=== PATIENT | female | born 1980 | race Caucasian/White ===

== ENCOUNTER 2020-10-24 23:30 | Emergency (ER) | payer SELFPAY ==
[2020-10-25] MEDS ORDERED: ONDANSETRON 4 MG/2 ML VIAL ONE (00:29)
[2020-10-25] MEDS ORDERED: MORPHINE 4 MG/ML SYR ONE (00:29)
[2020-10-25 00:47] LABS: ALT/SGPT 18 U/L (12-78); AST/SGOT 10 U/L (15-37); Albumin 3.8 g/dL (3.4-5.0); Alkaline Phosphatase 76 U/L (45-117); BUN Blood Urea Nitrogen 16 mg/dL (7-18); Bicarbonate 24 mmol/L (21-32); Bilirubin Direct < 0.1 mg/dL (0-0.2); Bilirubin Total 0.2 mg/dL (0.2-1.0); Glucose Level 96 mg/dL (74-106); Lipase 174 U/L (73-393); Potassium 3.6 mmol/L (3.5-5.1); Protein, Total 7.5 g/dL (6.4-8.2); Sodium Level 143 mmol/L (136-145)
[2020-10-25 00:48] LABS: Absolute Lymphocytes (CBC) 4.2 K/uL (0.7-4.9); Basophils % 1.4 % (0-1.3); Hematocrit 37.6 % (36.0-45.0); MPV 9.6 fL (7.6-11.3); RBC Red Blood Cell Count 4.37 M/uL (3.86-4.86)
[2020-10-25] MEDS ORDERED: MEPERIDINE HCL 50 MG/ML ONE (01:03)
--- NOTE | 2020-10-25 03:47 | EDPHYS ---
Physician Documentation [facility] Name: Estrella Cohen Age: 40 yrs Sex: Female : 1980 Arrival Date: 10/24/2020 Time: 23:31 Bed 17 Private MD: ED Physician Davin Sparks HPI: 10/25 01:01 This 40 yrs old Female presents to ER via Ambulatory with complaints of Back rn Pain, Abdominal Pain. 01:01 The patient presents with abdominal pain in the epigastric area, in the right upper rn quadrant. Onset: The symptoms/episode began/occurred today. The symptoms do not radiate. Associated signs and symptoms: Pertinent positives: nausea, Pertinent negatives: blood in stools, fever. The symptoms are described as crampy, intermittent. Modifying factors: The symptoms are alleviated by nothing, the symptoms are aggravated by food. Severity of pain: At its worst the pain was moderate in the emergency department the pain is unchanged. The patient has experienced similar episodes in the past. The patient has not recently seen a physician. Reports has gallstones, never had surgery, now having pain, intermittent, over last 3 days, worse today after eating hot pocket. No fever. No blood in stool. . REGULATORY MANAGER: 04:17 unknown jv1 Historical: - Allergies: 10/24 23:47 No Known Allergies; sg - Home Meds: 23:47 None [Active]; sg - PMHx: 23:47 Cholelithiasis; Adrenal Adenoma- Left Kidney; sg - PSHx: 23:47 Tubal ligation; sg - Immunization history:: Adult Immunizations up to date. - Social history:: Smoking status: Patient denies any tobacco usage or history of. - Family history:: not pertinent. - Hospitalizations: : No recent hospitalization is reported. ROS: 10/25 01:03 Constitutional: Negative for fever, chills, and weight loss, Eyes: Negative for injury, rn pain, redness, and discharge, Neck: Negative for injury, pain, and swelling, Cardiovascular: Negative for chest pain, palpitations, and edema, Respiratory: Negative for shortness of breath, cough, wheezing, and pleuritic chest pain, Abdomen/GI: + abd pain and nausea Back: + back pain : Negative for injury, bleeding, discharge, and swelling, MS/Extremity: Negative for injury and deformity, Skin: Negative for injury, rash, and discoloration, Neuro: Negative for headache, weakness, numbness, tingling, and seizure. Exam: 01:03 Constitutional: This is a well developed, well nourished patient who is awake, alert, rn appears uncomfortable Head/Face: Normocephalic, atraumatic. ENT: MMM Cardiovascular: Tachycardic, regular Respiratory: No increased work of breathing, no retractions or nasal flaring. Abdomen/GI: soft, + epigastric and RUQ tenderness Skin: Warm, dry MS/ Extremity: Pulses equal, no cyanosis. Neuro: Awake and alert, GCS 15 Vital Signs: 10/24 23:44 Weight 99.79 kg (R); Height 5 ft. 4 in. (162.56 cm) (R); Pain 10/10; sg 10/25 00:00 BP 159 / 96; Pulse 80; Resp 20; Temp 98.5; Pulse Ox 99% on R/A; Pain 10/10; jv1 01:00 BP 140 / 94; Pulse 75; Resp 20; Temp 98.2; Pulse Ox 99% ; jv1 02:10 BP 145 / 87; Pulse 63; Resp 18; Pulse Ox 100% on R/A; Pain 4/10; jv1 03:00 BP 143 / 88; Pulse 65; Resp 18; Temp 98; Pulse Ox 100% ; jv1 04:00 BP 138 / 89; Pulse 75; Resp 18; Temp 98.2; Pulse Ox 99% ; Pain 0/10; jv1 10/24 23:44 Body Mass Index 37.76 (99.79 kg, 162.56 cm) MDM: 10/24 23:40 Patient medically screened. rn 10/25 03:44 Differential diagnosis: cholecystitis, Cholelithiasis, gastritis. Data reviewed: vital rn signs, nurses notes, lab test result(s), radiologic studies, CT scan, and as a result, I will admit patient. Counseling: I had a detailed discussion with the patient and/or guardian regarding: the historical points, exam findings, and any diagnostic results supporting the discharge/admit diagnosis, lab results, radiology results, the need for further work-up and treatment in the hospital. Response to treatment: the patient's symptoms have mildly improved after treatment. ED course: Consulted with Dr. Murray, given biliary colic for 3 days, normal LFTs and lipase, agrees to admit patient, onto hospitalist service, with abx and NPO. Was going to admit due to persistent pain, but then patient states feels better, does not want a huge hospital bill, states plans on going home and hopefully making it until her insurance kicks in in November. Risks of leaving explained and understood. . 10/24 23:52 Order name: Basic Metabolic Panel; Complete Time: 00:48 rn 10/24 23:52 Order name: CBC with Diff; Complete Time: 01:11 rn 10/24 23:52 Order name: Hepatic Function; Complete Time: 00:48 rn 10/24 23:52 Order name: Lipase; Complete Time: 00:48 rn 10/24 23:52 Order name: CT Abd/Pelvis - IV Contrast Only rn 10/24 23:52 Order name: IV Saline Lock; Complete Time: 00:11 rn 10/24 23:52 Order name: Labs collected and sent; Complete Time: 00:11 rn Administered Medications: 00:20 Drug: Zofran (Ondansetron) 4 mg Route: IVP; Infused Over: 2 mins; Site: right jv1 antecubital; 01:00 Follow up: Response: No adverse reaction jv1 00:21 Drug: morphine 4 mg Route: IVP; Site: right antecubital; jv1 01:00 Follow up: Response: No adverse reaction; Pain is decreased jv1 00:51 Drug: Demerol 50 mg {Note: pre admin RASS - restless 1.} Route: IVP; Site: right dm5 antecubital; 02:00 Follow up: Response: No adverse reaction; Pain is decreased jv1 Disposition: 10/25/20 03:46 Discharged to Home. Impression: Cholelithiasis. - Condition is Stable. - Discharge Instructions: Cholelithiasis. - Prescriptions for Zofran ODT 4 mg Oral tablet,disintegrating - place 1 tablet by TRANSLINGUAL route every 8 hours; 20 tablet. - Medication Reconciliation Form, Thank You Letter, Antibiotic Education, Prescription Opioid Use form. - Follow up: Librado Hernadez MD; When: As needed; Reason: Recheck today's complaints, Re-evaluation by your physician. - Problem is an ongoing problem. - Symptoms have improved. Signatures: Dispatcher [employer] Sandi aPez RN RN dm5 Shemar Harley RN RN sg Davin Sparks MD MD rn Vicente, Joyce, RN RN jv1 Corrections: (The following items were deleted from the chart) 04:23 03:46 10/25/2020 03:46 Discharged to Home. Impression: Cholelithiasis. Condition is jv1 Stable. Forms are Medication Reconciliation Form, Thank You Letter, Antibiotic Education, Prescription Opioid Use. Follow up: Librado Hernadez; When: As needed; Reason: Recheck today's complaints, Re-evaluation by your physician. Problem is an ongoing problem. Symptoms have improved. rn
--- NOTE | 2020-10-25 03:47 | ER ---
Nurse's Notes [facility] Name: Estrella Cohen Age: 40 yrs Sex: Female : 1980 Arrival Date: 10/24/2020 Time: 23:31 Bed 17 Private MD: Diagnosis: Cholelithiasis Presentation: 10/24 23:44 Chief complaint: Patient states: Pain began yesterday at around 930 at night, then came sg again around 530 this morning, and now its back again. Pt states pain is epigastric area that radiates to the right upper back/flank area. pt states having hot flashes as well as feeling nauseated. reports known hx of gall stones and adrenal adenoma to the left kidney. Coronavirus screen: Client denies travel out of the [place] in the last 14 days. At this time, the client does not indicate any symptoms associated with coronavirus-19. Ebola Screen: Patient negative for fever greater than or equal to 101.5 degrees Fahrenheit, and additional compatible Ebola Virus Disease symptoms Patient denies exposure to infectious person. Patient denies travel to an Ebola-affected area in the 21 days before illness onset. No symptoms or risks identified at this time. Initial Sepsis Screen: Does the patient meet any 2 criteria? No. Patient's initial sepsis screen is negative. Does the patient have a suspected source of infection? No. Patient's initial sepsis screen is negative. Risk Assessment: Do you want to hurt yourself or someone else? Patient reports no desire to harm self or others. Onset of symptoms was October 24, 2020. Care prior to arrival: None. Transition of care: patient was not received from another setting of care. 23:44 Acuity: RICK 3 sg 23:44 Method Of Arrival: Ambulatory sg Triage Assessment: 23:44 General: Appears in no apparent distress. well groomed, well developed, well nourished, sg Behavior is cooperative, appropriate for age, crying. Pain: Complains of pain in epigastric area Pain radiates to right mid back Quality of pain is described as aching, sharp. GI: Reports upper abdominal pain, nausea. Musculoskeletal: Circulation, motion, and sensation intact. Range of motion: intact in all extremities. CARBONATION TESTER: 10/25 04:17 unknown jv1 Historical: - Allergies: 12/10 23:47 No Known Allergies; sg - Home Meds: 23:47 None [Active]; sg - PMHx: 23:47 Cholelithiasis; Adrenal Adenoma- Left Kidney; sg - PSHx: 23:47 Tubal ligation; sg - Immunization history:: Adult Immunizations up to date. - Social history:: Smoking status: Patient denies any tobacco usage or history of. - Family history:: not pertinent. - Hospitalizations: : No recent hospitalization is reported. Screenin/11 00:00 Abuse screen: Denies threats or abuse. Nutritional screening: No deficits noted. jv1 Tuberculosis screening: No symptoms or risk factors identified. Fall Risk None identified. Assessment: 00:00 General: Appears distressed, uncomfortable, well groomed, Behavior is calm, jv1 cooperative, appropriate for age, crying. Pain: Complains of pain in back and right mid back and abdomen and epigastric area Pain currently is 10 out of 10 on a pain scale. Quality of pain is described as aching. Neuro: Level of Consciousness is awake, alert, obeys commands, Oriented to person, place, time, situation, Appropriate for age Fireworks Inspector are equal bilaterally Moves all extremities. Cardiovascular: Denies chest pain. Respiratory: Airway is patent Respiratory effort is even, unlabored, Respiratory pattern is regular, symmetrical, Breath sounds are clear bilaterally. GI: No signs and/or symptoms were reported involving the gastrointestinal system. Abdomen is round non-distended, Bowel sounds present X 4 quads. Abd is soft Abdomen is tender to palpation. : No signs and/or symptoms were reported regarding the genitourinary system. EENT: No signs and/or symptoms were reported regarding the EENT system. Derm: No signs and/or symptoms reported regarding the dermatologic system. Skin is intact, is healthy with good turgor, Skin is pink, warm \T\ dry. Musculoskeletal: No signs and/or symptoms reported regarding the musculoskeletal system. 01:00 Reassessment: Patient appears in no apparent distress at this time. No changes from jv1 previously documented assessment. Patient and/or family updated on plan of care and expected duration. Pain level reassessed. Patient is alert, oriented x 3, equal unlabored respirations, skin warm/dry/pink. Dr. Sparks in the room with pt. 02:10 Reassessment: Patient appears in no apparent distress at this time. No changes from jv1 previously documented assessment. Patient and/or family updated on plan of care and expected duration. Pain level reassessed. Patient is alert, oriented x 3, equal unlabored respirations, skin warm/dry/pink. 02:35 Reassessment: Dr. Sparks in the room with pt. jv1 03:19 Reassessment: Patient appears in no apparent distress at this time. No changes from jv1 previously documented assessment. Patient and/or family updated on plan of care and expected duration. Pain level reassessed. Patient is alert, oriented x 3, equal unlabored respirations, skin warm/dry/pink. Dr. Sparks in the room with pt. Vital Signs: 10/24 23:44 Weight 99.79 kg (R); Height 5 ft. 4 in. (162.56 cm) (R); Pain 10/10; sg 10/25 00:00 BP 159 / 96; Pulse 80; Resp 20; Temp 98.5; Pulse Ox 99% on R/A; Pain 10/10; jv1 01:00 BP 140 / 94; Pulse 75; Resp 20; Temp 98.2; Pulse Ox 99% ; jv1 02:10 BP 145 / 87; Pulse 63; Resp 18; Pulse Ox 100% on R/A; Pain 4/10; jv1 03:00 BP 143 / 88; Pulse 65; Resp 18; Temp 98; Pulse Ox 100% ; jv1 04:00 BP 138 / 89; Pulse 75; Resp 18; Temp 98.2; Pulse Ox 99% ; Pain 0/10; jv1 10/24 23:44 Body Mass Index 37.76 (99.79 kg, 162.56 cm) ED Course: 10/24 23:31 Patient arrived in ED. cl3 23:40 Davin Sparks MD is Attending Physician. rn 23:44 Arm band placed on. sg 23:46 Triage completed. 10/25 00:00 Patient has correct armband on for positive identification. Bed in low position. Call jv1 light in reach. Side rails up X2. 00:00 Inserted saline lock: 20 gauge in right antecubital area, using aseptic technique. jv1 01:10 CT Abd/Pelvis - IV Contrast Only In Process Unspecified. EDMS 03:46 Librado Hernadez MD is Referral Physician. rn 04:15 No provider procedures requiring assistance completed. jv1 04:17 IV discontinued, intact, bleeding controlled, No redness/swelling at site. Pressure jv1 dressing applied. 04:22 Inserted. jv1 Administered Medications: 00:20 Drug: Zofran (Ondansetron) 4 mg Route: IVP; Infused Over: 2 mins; Site: right jv1 antecubital; 01:00 Follow up: Response: No adverse reaction jv1 00:21 Drug: morphine 4 mg Route: IVP; Site: right antecubital; jv1 01:00 Follow up: Response: No adverse reaction; Pain is decreased jv1 00:51 Drug: Demerol 50 mg {Note: pre admin RASS - restless 1.} Route: IVP; Site: right dm5 antecubital; 02:00 Follow up: Response: No adverse reaction; Pain is decreased jv1 Outcome: 03:46 Discharge ordered by MD. rn 04:16 Discharged to home ambulatory. jv1 04:16 Condition: stable 04:16 Discharge instructions given to patient, Instructed on discharge instructions, follow up and referral plans. medication usage, Demonstrated understanding of instructions, follow-up care, medications, Prescriptions given X 1. 04:23 Patient left the ED. jv1 Signatures: Dispatcher [employer] EDMS Sandi Escalante RN RN dm5 Shemar Harley RN Davin Mcintosh MD MD rn Vicente, Joyce, RN RN jv1 Kenya Irizarry cl3 Corrections: (The following items were deleted from the chart) 00:54 00:51 Demerol 50 mg IVP in right antecubital dm5 dm5
--- NOTE | 2020-10-25 12:05 | RAD REPORT ---
EXAM DESCRIPTION: CT - Abdomen Pelvis W Contrast - 10/25/2020 6:27 am CLINICAL HISTORY: Abdominal pain. COMPARISON: CT abdomen with contrast 05/10/2020 TECHNIQUE: Axial CT imaging of the abdomen and pelvis performed with intravenous contrast. Reformatt ed coronal and sagittal images reviewed. A dose reduction technique was utilized with automated exposure control according to patient size. FINDINGS: Clear lung bases. Heart is normal in size. Normal liver contour in size. No liver mass. There is minimal intrahepatic biliary duct dilatatio n. The gallbladder is mildly distended. There is a peripherally calcified 1.5 cm stone in the gal lbladder neck. No pericholecystic edema. Normal spleen and pancreas. Normal right adrenal gland . There is a low-density heterogeneous left adrenal 3.4 cm solid nodule with density values compati ble with benign adenoma. There is an exophytic anterior left renal 2.0 cm cyst. Normal right kidn ey. No hydronephrosis or stone either kidney. There is normal caliber of the aorta and inferior vena cava. No pneumothorax. No adenopathy. Me senteric vessels appear normal. Unremarkable stomach, small bowel loops, right lower quadrant appendix. Mild descending colon diver ticulosis. No diverticulitis. No ascites or free air. Normal bladder and uterus. Tubal ligation clips are present bilaterally. Follicular changes are p resent within both ovaries. There is a small amount of pelvic free fluid. Unremarkable lumbosacral spine. Normal bony pelvis and hips. IMPRESSION: 1. Cholelithiasis without cholecystitis. There is slight intrahepatic biliary ductal dilatation without obstructing stone or mass. 2. Mild descending and sigmoid colon diverticulosis without diverticulitis. 3. Left renal cyst. 4. Left adrenal benign adenoma. Electronically signed by: Zee Arora DO 10/25/2020 1:26 AM PATIENT SERVICES ASSISTANT Due to temporary technical issues with the PACS/Fluency reporting system, reports are being signed by the in house radiologist without review as a courtesy to ensure prompt reporting. The interpreting r adiologist is fully responsible for the content of the report.
[2020-10-30 01:22] VITALS: BP 138/89; TEMP 98.2; O2SAT 99
== END 2020-10-25 04:23 | disposition home or self-care (01) ==
LOC: ER 23:30
DX: K80.20 Calculus of gallbladder without cholecystitis without obstruction (principal)
CPT/HCPCS: 36415; 74177; 80048; 80076; 83690; 85025; 96374; 96375; 99284; J2175; J2405; Q9967

== ENCOUNTER 2020-12-04 08:26 | Day surgery (SDC) | payer OTHER, SELFPAY ==
[2020-12-04] MEDS ORDERED: CEFOXITIN/SWI 2gm 2 GM/20 ML SYR IV ONE (09:00)
[2020-12-04] MEDS ORDERED: Ringers Lactate 1,000 ML IV ONE (09:05)
[2020-12-04] MEDS ORDERED: ONDANSETRON 4 MG/2 ML VIAL ONE ×2 (10:57→13:07)
[2020-12-04] MEDS ORDERED: FENTANYL CITR 100 MCG/2 ML ONE ×2 (10:57→12:02)
[2020-12-04] MEDS ORDERED: MIDAZOLAM HCL 2 MG/2 ML INJ ONE (10:57)
[2020-12-04] MEDS ORDERED: dexAMETHasone 10 MG/ML VIAL ONE (10:57)
[2020-12-04] MEDS ORDERED: propofoL 200 MG/20 ML VIAL IV ONE (10:57)
[2020-12-04] MEDS ORDERED: LIDOCAINE 2% MPF 5 ML VIAL ONE (10:57)
[2020-12-04] MEDS ORDERED: ROCURONIUM 50 MG/5 ML VIAL IV ONE (10:57)
[2020-12-04] MEDS: BUPIVACAINE 0.25% PF 30 ML VIAL ONE ×2 (11:01→11:36)
[2020-12-04] MEDS ORDERED: GLYCOPYRROLATE 0.2 MG/ML SYR ONE ×2 (11:55→12:35)
--- NOTE | 2020-12-04 12:24 | P.OP ---
Preoperative diagnosis: Chronic Cholecytitis with Cholelithiasis Postoperative diagnosis: Chronic Cholecytitis with Cholelithiasis Primary procedure: Laparoscopic Cholecystectomy Anesthesia: GETA + Local Estimated blood loss: <5cc Specimen: Gallbladder Findings: Cholelithiasis Complications: None Transferred to: Recovery Room Condition: Good
[2020-12-04] MEDS ORDERED: KETOROLAC 30 MG/ML INJ ONE (12:35)
[2020-12-04] MEDS ORDERED: NEOSTIGMINE 1 MG/ML -5 ML ONE (12:35)
[2020-12-04] MEDS: MEPERIDINE HCL 25 MG/ML SYR ONE ×2 (12:48→13:00)
[2020-12-04] MEDS: MORPHINE 4 MG/ML SYR ONE ×2 (12:55→13:06)
--- NOTE | 2020-12-04 13:12 | OP ---
Date of Procedure: 12/04/2020 Surgeon: Librado Hernadez MD, Preoperative Diagnosis: Chronic cholecystitis with cholelithiasis. Postoperative Diagnosis: Chronic cholecystitis with cholelithiasis. Procedure Performed: Laparoscopic cholecystectomy. Anesthesia: General endotracheal plus local. Estimated Blood Loss: Less than 5 mL. Specimen: Gallbladder. Findings: Cholelithiasis. Complications: None. Disposition: The patient transferred to recovery room in good condition. Procedure In Detail: After informed was obtained, the patient was brought to the operating room, pre pped and draped in the usual sterile fashion. After adequate anesthesia was achieved, a supraumbilic al area was anesthetized with 0.25% Marcaine and sharply incised. A 5 mm 0-degree optical trocar was introduced in the abdomen without evidence of complication. Insufflation was obtained to 15 mm at t his time. No injury to vital structure prompted upon entry to the abdomen. Two additional trocars w ere placed, 1 in the epigastrium and 1 in the right upper quadrant. Both of these were similarly ane sthetized, sharply incised and 5 mm trocars was placed in the abdomen without evidence of complicatio n. The umbilical trocar was then up-sized to a 12 mm under direct visualization without evidence of complication. The patient was positioned in head up right-side up position. Grasper was used to gra sp the patient's gallbladder, placed towards patient's right shoulder. Dissection continued down to the Oswald pouch of the gallbladder. It was found to have significant inflammatory change and scar tissue with adhesions near the triangle of Calot. This area was dissected until 2 structures were i dentified, both identified as cystic duct and cystic artery after the critical view of safety was obt ained. At this point, a double titanium clips were placed on both the cystic artery and cystic duct, doubly on the proximal side and singly on the distal side of these 2 structures and then Endo Renae were used to ligate these 2 structures. The gallbladder was removed from the hepatic fossa without evidence of complication and sent off for pathologic examination after being placed in EndoCatch bag and removed via umbilical trocar. The abdomen was then re-insufflated and irrigated copiously until completely clear. There was no spillage of bile or bleeding throughout the procedure. The clips wer e found to be in good position without any leakage. The remainder of the effluent was suctioned and the patient was positioned back in neutral position. Effluent was then suctioned out once again and the umbilical trocar was removed. The umbilical trocar site was closed using a Alberto sutur e passer with 0 Vicryl in an interrupted fashion with good approximation of tissues. The abdomen was completely desufflated under direct visualization without evidence of complication. All skin incisi ons were copiously irrigated and closed with 4-0 Monocryl in a running fashion and Dermabond was plac ed over top. The patient tolerated the procedure well without evidence of complication and transferr ed to PACU in good condition. All counts were correct at the end of the case. RUBINA/ADA Voice ID: [id number] Report ID: [id number]
[2020-12-04] MEDS ORDERED: HYDROCODONE/APAP 5/325 MG TAB ONE (14:14)
[2020-12-04 14:36] VITALS: BP 121/69; TEMP 97.4; O2SAT 97
== END 2020-12-04 15:05 | disposition home or self-care (01) ==
LOC: OR 08:26
PROVIDERS: ATTEND Surgery
PROC: 0FT44ZZ Resection of Gallbladder, Percutaneous Endoscopic Approach (ICD-10-PCS; principal; 2020-12-04 10:30)
DX: K80.64 Calculus of gallbladder and bile duct with chronic cholecystitis without obstruction (principal); Z20.822 Contact with and (suspected) exposure to COVID-19
CPT/HCPCS: 81025; 88304; 47562; U0002; J2704; J2250; J3010 ×2; J1100; J2175; J2710; J0694; J7120; J2405 ×2

== ENCOUNTER 2023-08-01 18:26 | Emergency (ER) | payer OTHER ==
--- OUTSIDE RECORDS SUMMARY | 2023-08-01 18:28 | XMS REPORT | Continuity of Care Document ---
:1980 [address] [facility] Address [address] [place] [id number] Care Team Providers Name Role Phone Nela Park Attending Clinician Unavailable Arsenio_Mitchell Attending Clinician Unavailable Arsenio_Mitchell Admitting Clinician Unavailable Payers Payer Name Policy Type Policy Number Effective Date Expiration Date [place] - [id number] [facility] 3 (O) Problems This patient has no known problems. Allergies, Adverse Reactions, Alerts This patient has no known allergies or adverse reactions. Medications This patient has no known medications. Procedures This patient has no known procedures. Encounters Start End Encounter Admission Attending Care Care Encounter Source Date/Time Date/Time Type Type Clinicians Facility Department ID 2023-07-13 Outpatient Xavier, L[facility]IE [facility] [id number] Common 07:32:00 Nela [id number] [facility] 2023-07-[address] [facility] [id number] Common 14:42:01 Nela [id number] [facility] 2023-07-09 Outpatient FRANCESCA Park [facility] [id number] Common 11:16:01 Neal [id number] [facility] 2023-03-[address] [facility] [id number] Common 13:45:02 Nela [id number] [facility] 2023-03-10 2023-03-10 Outpatient Arsenio_Mitchell [facility] [id number] [facility] 00:00:00 00:00:00 [id number] Family Practic e Results This patient has no known results.
--- NOTE | 2023-08-01 18:41 | ER ---
Nurse's Notes [facility] Name: Estrella Cohen Age: 43 yrs Sex: Female : 1980 Arrival Date: 08/01/2023 Time: 18:26 Bed 16 Private MD: Diagnosis: SARS-associated coronavirus as the cause of diseases classified elsewhere Presentation: 08/01 18:36 Chief complaint: Headache, body aches, malaise, and fever x 5 days. Tested COVID + 4 hb days ago. Coronavirus screen: Client presents with at least one sign or symptom that may indicate coronavirus-19. Standard/surgical mask placed on the client. Provider contacted for isolation considerations. Client reports previous positive COVID test result. Date of collection: July 29, 2023. Ebola Screen: No symptoms or risks identified at this time. Initial Sepsis Screen: Does the patient meet any 2 criteria? No. Patient's initial sepsis screen is negative. Does the patient have a suspected source of infection? No. Patient's initial sepsis screen is negative. Risk Assessment: Do you want to hurt yourself or someone else? Patient reports no desire to harm self or others. Onset of symptoms was July 27, 2023. 18:36 Method Of Arrival: Ambulatory hb 18:36 Acuity: RICK 4 hb Historical: - Allergies: 18:37 No Known Allergies; hb - PMHx: 18:37 Adrenal Adenoma- Left Kidney; Cholelithiasis; hb - Immunization history:: Adult Immunizations up to date. - Social history:: Smoking status: Patient denies any tobacco usage or history of. Screenin:48 [facility] ED Fall Risk Assessment (Adult) History of falling in the last 3 months, db including since admission No falls in past 3 months (0 pts) Confusion or Disorientation No (0 pts) Intoxicated or Sedated No (0 pts) Impaired Gait No (0 pts) Mobility Assist Device Used No (0 pt) Altered Elimination No (0 pt) Score/Fall Risk Level 0 - 2 = Low Risk Oriented to surroundings, Maintained a safe environment. Abuse screen: Denies threats or abuse. Denies injuries from another. Nutritional screening: No deficits noted. Tuberculosis screening: No symptoms or risk factors identified. Assessment: 18:48 Reassessment: Patient appears in no apparent distress at this time. Patient and/or db family updated on plan of care and expected duration. Pain level reassessed. Patient is alert, oriented x 3, equal unlabored respirations, skin warm/dry/pink. COVID SYMPTOMS. General: Appears in no apparent distress. uncomfortable, Behavior is calm, cooperative. Pain: Complains of pain in BODY ACHES. Neuro: Level of Consciousness is awake, alert, obeys commands, Oriented to person, place, time, situation. Respiratory: Airway is patent Respiratory effort is even, unlabored, Respiratory pattern is regular, symmetrical. Vital Signs: 18:36 BP 148 / 96; Pulse 80; Resp 20; Temp 98.7(O); Pulse Ox 98% on R/A; Weight 99.79 kg; hb Height 5 ft. 4 in. ; Pain 7/10; 18:36 Body Mass Index 37.76 (99.79 kg, 162.56 cm) hb 18:36 Pain Scale: Adult hb ED Course: 18:28 Patient arrived in ED. im 18:31 Magalis Brush FNP-C is [facility]. kb 18:31 Anurag Connor is Attending Physician. kb 18:37 Triage completed. hb 18:38 Arm band placed on. hb 18:48 Stacey Constantino, RN is Primary Nurse. db 18:48 Patient has correct armband on for positive identification. Bed in low position. Call db light in reach. Side rails up X 1. Provided Education on: DISCHARGE. 18:48 No provider procedures requiring assistance completed. Patient did not have IV access db during this emergency room visit. Administered Medications: 18:48 Drug: Ondansetron PO 4 mg Route: PO; db 18:51 Follow up: Response: No adverse reaction db Medication: 18:48 VIS not applicable for this client. db Outcome: 18:40 Discharge ordered by MD. kb 18:48 Discharged to home via wheelchair, with family. db 18:48 Condition: stable 18:48 Discharge instructions given to patient, family, Instructed on discharge instructions, follow up and referral plans. Prescriptions given X 1. 18:51 Patient left the ED. db Signatures: Magalis Brush FNP-C FNP-Ckb Baxter, Heather, RN RN Stacey Constantino RN RN db Ameena Foley im Corrections: (The following items were deleted from the chart) 18:39 18:36 BP 148 / 96; Pulse 80bpm; Resp 20bpm; Pulse Ox 98% RA; Temp 98.7F Oral; Pain hb 7/10, Adult; hb
--- NOTE | 2023-08-01 18:41 | EDPHYS ---
Physician Documentation [facility] Name: Estrella Cohen Age: 43 yrs Sex: Female : 1980 Arrival Date: 08/01/2023 Time: 18:26 Bed 16 Private MD: ED Physician Anurag Connor HPI: 08/01 18:56 This 43 yrs old Female presents to ER via Ambulatory with complaints of COVID positive, kb Pain All Over, Headache. 18:56 The patient or guardian reports cough, that is intermittent, described as mild, flu kb symptoms, low-grade fever, myalgias. Onset: The symptoms/episode began/occurred 6 day(s) ago. Severity of symptoms: At their worst the symptoms were moderate, in the emergency department the symptoms are unchanged. Modifying factors: The symptoms are alleviated by nothing, the symptoms are aggravated by nothing. Associated signs and symptoms: Pertinent positives: diarrhea, fever, nausea, rhinorrhea, sore throat. The patient has not experienced similar symptoms in the past. The patient has not recently seen a physician. Pt reports headache started on Wednesday, tested positive for covid on . c/o cough, congestion, bodyaches, headache, sore throat, nausea and little diarrhea. . Historical: - Allergies: 18:37 No Known Allergies; hb - PMHx: 18:37 Adrenal Adenoma- Left Kidney; Cholelithiasis; hb - Immunization history:: Adult Immunizations up to date. - Social history:: Smoking status: Patient denies any tobacco usage or history of. ROS: 18:55 Cardiovascular: Negative for chest pain, palpitations, and edema. kb 18:55 Constitutional: Positive for body aches, chills, fatigue, fever, malaise, poor PO intake. 18:55 ENT: Positive for rhinorrhea, sinus congestion, sore throat. 18:55 Respiratory: Positive for cough. 18:55 Abdomen/GI: Positive for nausea, diarrhea. 18:55 Neuro: Positive for headache. 18:55 All other systems are negative. Exam: 18:56 Constitutional: This is a well developed, well nourished patient who is awake, alert, kb and in no acute distress. Head/Face: Normocephalic, atraumatic. ENT: Moist Mucous membranes Cardiovascular: Regular rate Respiratory: Respirations even and unlabored. No increased work of breathing. Talking in full sentences Abdomen/GI: Soft, non-tender. No distention Skin: Warm, dry with normal turgor. Normal color. MS/ Extremity: Pulses equal, no cyanosis. Neurovascular intact. Full, normal range of motion. Neuro: Awake and alert, GCS 15, oriented to person, place, time, and situation. Moves all extremities. Normal gait. Vital Signs: 18:36 BP 148 / 96; Pulse 80; Resp 20; Temp 98.7(O); Pulse Ox 98% on R/A; Weight 99.79 kg; hb Height 5 ft. 4 in. ; Pain 7/10; 18:36 Body Mass Index 37.76 (99.79 kg, 162.56 cm) hb 18:36 Pain Scale: Adult hb MDM: 18:31 Patient medically screened. kb 18:56 Data reviewed: vital signs, nurses notes. kb 18:58 Differential Diagnosis: Other covid, flu, viral syndrome. I considered the following kb discharge prescriptions or medication management in the emergency department I discussed and recommended Over The Counter medications, Antibiotics: At this time antibiotics are not recommended. Test considered but Not performed: X-ray: chest x-ray considered, but lungs clear bilaterally, resp even and unlabored, oxygen 99% on room air. . Counseling: I had a detailed discussion with the patient and/or guardian regarding the historical points, exam findings, and any diagnostic results supporting the discharge/admit diagnosis, the need for outpatient follow up, a family practitioner, to return to the emergency department if symptoms worsen or persist or if there are any questions or concerns that arise at home. Administered Medications: 18:48 Drug: Ondansetron PO 4 mg Route: PO; db 18:51 Follow up: Response: No adverse reaction db Disposition: 08/02 15:08 Co-signature as Attending Physician, Anurag Connor I agree with the assessment ci and plan of care. I reviewed the patient's care provided by the Advanced Practice Provider and agree with the diagnosis and treatment plan. Disposition Summary: 08/01/23 18:40 Discharge Ordered Location: Home kb Condition: Stable kb Diagnosis - SARS-associated coronavirus as the cause of diseases classified elsewhere kb Followup: kb - With: Emergency Department - When: As needed - Reason: Worsening of condition Followup: kb - With: Private Physician - When: 2 - 3 days - Reason: Recheck today's complaints, Continuance of care, Re-evaluation by your physician Discharge Instructions: - Discharge Summary Sheet kb - COVID-19 kb - Viral Illness, Adult kb Forms: - Medication Reconciliation Form kb - Thank You Letter kb - Antibiotic Education kb - Prescription Opioid Use kb - Patient Portal Instructions kb - Leadership Thank You Letter kb Prescriptions: - Zofran 4 mg Oral Tablet - take 1 tablet by ORAL route every 6 hours As needed; 12 tablet; Refills: 0, kb Product Selection Permitted Signatures: Magalis Brush, STULL INSTALLER-C STULL INSTALLER-Davida Almazan, RN RN Stacey Pelayo, RN RN Anurag Romo
[2023-08-01] MEDS ORDERED: ONDANSETRON 4 MG (ODT) TAB ONE (18:55)
[2023-08-01 19:21] VITALS: BP 148/96; TEMP 98.7; O2SAT 98
== END 2023-08-01 18:51 | disposition home or self-care (01) ==
LOC: ER 18:26
DX: U07.1 COVID-19 (principal)
CPT/HCPCS: 99283; Q0162

== ENCOUNTER 2023-12-11 06:33 | Observation (INO) | payer OTHER ==
--- OUTSIDE RECORDS SUMMARY | 2023-12-11 06:35 | XMS REPORT | Continuity of Care Document ---
Author Name Unknown Address [address] [facility] [address] [place], [place] [id number] [place] [address] thconnect Address [address] [facility] [address] [place] [address] Care Team Providers Care Scrap Yard Worker Name Role Phone Nela Park Attending Clinician Unavailable Clay Attending Clinician Unavailable Clay Admitting Clinician Unavailable Payers Payer Name Policy Type Policy Number Effective Date Expirati on Date Source [facility] [address]) [id number] Problems Condition Name Condition Details Condition Category Status Onset Date Resolution Date Last Treatment Date Treating Clinician Comments Source [id number] Cigarette nicotine dependence without complicati on Problem [facility] [id number] Calculus of gallbladde r with acute on chronic cholecysti tis without obstructio n Problem [facility] [id number] Adrenal mass 1 cm to 4 cm in diameter Problem Common [facility] [id number] Fatigue, unspecifie d type Problem [facility] [id number] Epidermoid cyst of finger of right hand Problem Common [facility] [id number] Vitamin D deficiency Problem [facility] [id number] Bronchitis Problem Comm on [facility] [id number] Gastroesop hageal reflux disease without esophagiti s Problem [facility] [id number] Acquired hypothyroi dism Problem Common [facility] Hypothyroi dism Hypothyroi dism, adult Problem [facility] [id number] Vertigo Problem [facility] Social History Social Habit Start Date Stop Date Quantity Comments Source History of Tobacco Use Current Smoker [facility] Sex Assigned At [facility] Smoking Status Start Date Stop Date Source Current Smoker 2023-09-23 00:00:00 [facility] Medications Ordered Medication Name Filled Medication Name Start Date Stop Date Current Medication? Ordering Clinician Indication Dosage Frequency Signature (SIG) Comments Components Source Levothyroxi ne Sodium 88 MCG Levothyroxi ne Sodium 88 MCG No QD Levothyrox ine Sodium 88 MCG Ibuprofen Ibuprofen No Ibuprofen ZyrTEC Allergy 10 MG ZyrTEC Allergy 10 MG No 1{table t} QD ZyrTEC Allergy 10 MG Omeprazole 20 MG Omeprazole 20 MG No Omeprazole 20 MG Tylenol 325 MG Tylenol 325 MG No 1{table t_as_ne eded} 6xD Tylenol 325 MG Levothyroxi ne Sodium 88 MCG Levothyroxi ne Sodium 88 MCG No QD Levothyrox ine Sodium 88 MCG Ibuprofen Ibuprofen No Ibuprofen ZyrTEC Allergy 10 MG ZyrTEC Allergy 10 MG No 1{table t} QD ZyrTEC Allergy 10 MG Omeprazole 20 MG Omeprazole 20 MG No Omeprazole 20 MG Tylenol 325 MG Tylenol 325 MG No 1{table t_as_ne eded} 6xD Tylenol 325 MG ZyrTEC Allergy 10 MG ZyrTEC Allergy 10 MG No 1{table t} QD ZyrTEC Allergy 10 MG Levothyroxi ne Sodium 88 MCG Levothyroxi ne Sodium 88 MCG No Levothyrox ine Sodium 88 MCG Tylenol 325 MG Tylenol 325 MG No 1{table t_as_ne eded} 6xD Tylenol 325 MG Omeprazole 20 MG Omeprazole 20 MG No Omeprazole 20 MG Ibuprofen Ibuprofen No Ibuprofen ZyrTEC Allergy 10 MG ZyrTEC Allergy 10 MG No 1{table t} QD ZyrTEC Allergy 10 MG Levothyroxi ne Sodium 88 MCG Levothyroxi ne Sodium 88 MCG No Levothyrox ine Sodium 88 MCG Tylenol 325 MG Tylenol 325 MG No 1{table t_as_ne eded} 6xD Tylenol 325 MG Omeprazole 20 MG Omeprazole 20 MG No Omeprazole 20 MG Ibuprofen Ibuprofen No Ibuprofen Vital Signs Vital Name Observation Time Observation Value Comments S krishna height 2023-09-23 14:20:00 66.00 [in_i] Com [facility] weight 2023-09-23 14:20:00 218.8 [lb_av] Co [facility] temperature 2023-09-23 14:20:00 98.0 [degF] Com [facility] bmi 2023-09-23 14:20:00 35.31 kg/m2 Comm on [facility] oximetry 2023-09-23 14:20:00 98 % Commo n [facility] respiratory rate 2023-09-23 14:20:00 16 /min [facility] blood pressure systolic 2023-09-23 14:20:00 147 mm[Hg] [facility] blood pressure diastolic 2023-09-23 14:20:00 86 mm[Hg] [facility] height 2023-07-13 13:00:00 66.00 [in_i] Com [facility] weight 2023-07-13 13:00:00 221.0 [lb_av] Co [facility] temperature 2023-07-13 13:00:00 98.2 [degF] Com [facility] bmi 2023-07-13 13:00:00 35.67 kg/m2 Comm on [facility] oximetry 2023-07-13 13:00:00 95 % Commo n [facility] respiratory rate 2023-07-13 13:00:00 16 /min [facility] blood pressure systolic 2023-07-13 13:00:00 134 mm[Hg] [facility] blood pressure diastolic 2023-07-13 13:00:00 85 mm[Hg] [facility] height 2023-05-13 13:00:00 66.00 [in_i] Com [facility] weight 2023-05-13 13:00:00 221.2 [lb_av] Co mmon [facility] temperature 2023-05-13 13:00:00 98.0 [degF] Com [facility] bmi 2023-05-13 13:00:00 35.7 kg/m2 Commo n [facility] oximetry 2023-05-13 13:00:00 98 % Commo n [facility] respiratory rate 2023-05-13 13:00:00 16 /min [facility] blood pressure systolic 2023-05-13 13:00:00 135 mm[Hg] [facility] blood pressure diastolic 2023-05-13 13:00:00 82 mm[Hg] [facility] height 2023-03-10 13:40:00 66.00 [in_i] Com [facility] weight 2023-03-10 13:40:00 222.6 [facility]lb_av] [facility] 13:40:00 98.1 [degF] Com [facility] bmi 2023-03-10 13:40:00 35.92 kg/m2 Comm on [facility] oximetry 2023-03-10 13:40:00 97 % Commo n [facility] respiratory rate 2023-03-10 13:40:00 16 /min [facility] blood pressure systolic 2023-03-10 13:40:00 138 mm[Hg] Common [facility] blood pressure diastolic 2023-03-10 13:40:00 86 mm[Hg] [facility] Encounters Start Date/Time End Date/Time Encounter Type Admission Type Attending [facility] Care Facility Care Department Encounter ID Source 2023-12-01 13:04:00 Outpatient Nela Park [facility] [id number] [facility] 2023-07-13 07:32:00 Outpatient Nela Park [facility] [id number] [facility] 2023-07-12 14:42:01 Outpatient Nela Park [facility] [id number] [facility] 2023-07-09 11:16:01 Outpatient Nela Park [facility] [id number] [facility] 2023-03-10 13:45:02 Outpatient Nela Park [facility] [id number] [facility] 2023-09-23 00:00:00 2023-09-23 00:00:00 OFFICE VISIT ESTAB PT LEVEL 3 [facility] [id number] [facility] 2023-07-13 00:00:00 2023-07-13 00:00:00 OFFICE VISIT ESTAB PT LEVEL 3 [facility] [id number] [facility] 2023-05-13 00:00:00 2023-05-13 00:00:00 OFFICE VISIT ESTAB PT LEVEL 3 [facility] [id number] [facility] 2023-03-10 00:00:00 2023-03-10 00:00:00 Outpatient Daniel_T VFP VFP [id number] [facility] 2023-03-10 00:00:00 2023-03-10 00:00:00 OFFICE VISIT ESTAB PT LEVEL 4 [facility] [id number] [facility]
[2023-12-11] MEDS ORDERED: ONDANSETRON 4 MG/2 ML VIAL ONE ×2 (07:20→08:43)
[2023-12-11] MEDS ORDERED: FAMOTIDINE 20 MG/2 ML VIAL IV ONE (07:21)
[2023-12-11] MEDS ORDERED: NA CHLORIDE 0.9% 1,000 ML ONE (07:21)
[2023-12-11] MEDS ORDERED: MORPHINE 4 MG/ML SYR ONE (07:21)
[2023-12-11 07:29] LABS: Absolute Lymphocytes (CBC) 3.1 K/uL (0.7-4.9); Hematocrit 40.6 % (36.0-45.0); Lymphocytes % 26.4 % (15.3-44.8); MCV 86.7 fL (80-100); MPV 8.6 fL (7.6-11.3); Platelets 423 thou/uL (152-406); RBC Red Blood Cell Count 4.69 M/uL (3.86-4.86)
[2023-12-11 07:48] LABS: Albumin 3.4 g/dL (3.4-5.0); Bilirubin Total 0.2 mg/dL (0.2-1.0); Potassium 3.6 mEq/L (3.5-5.1); Protein, Total 7.3 g/dL (6.4-8.2)
[2023-12-11] MEDS ORDERED: HYDROMORPHONE HCL 0.5 MG/0.5 ML INJ ONE (08:43)
--- NOTE | 2023-12-11 08:43 | RAD REPORT ---
EXAM DESCRIPTION: CT - Abdomen Pelvis W Contrast - 12/11/2023 8:10 am CLINICAL HISTORY: Abdominal pain COMPARISON: 2019 TECHNIQUE: Computed axial tomography of the abdomen pelvis was obtained. 100 cc Isovue-300 was admin istered intravenously. Oral contrast was not requested which limits evaluation of bowel and appendix All CT scans are performed using dose optimization technique as appropriate and may include automated exposure control or mA/KV adjustment according to patient size. FINDINGS: The liver, spleen, pancreas, right adrenal adrenal and kidneys appear unremarkable. Cholecystectomy 4.3 centimeter left renal mass in the craniocaudal plane is unchanged size. Hounsfield unit 57 3.9 centimeter low-density mass left kidney Hounsfield unit 22 has increased in size There is no evidence of diverticulitis. Normal appendix Small umbilical hernia 2 centimeter irregularly-shaped right ovarian cyst has recently ruptured. Small to moderate amount fr ee fluid within the pelvis. Tubal ligation clips IMPRESSION: 2 centimeter irregularly-shaped right ovarian cyst has recently ruptured. Small to moder ate amount free fluid within the pelvis. Enlargement of a 3.9 centimeter low-density left renal cystic mass. Ultrasound recommended 4.3 centimeter left adrenal mass is unchanged in size since 2020. Given the lack of growth this proba refugio represents an adenoma
--- NOTE | 2023-12-11 09:54 | ER ---
Nurse's Notes [facility] Name: Estrella Cohen Age: 43 yrs Sex: Female : 1980 Arrival Date: 12/11/2023 Time: 06:33 Bed 5 Private MD: Diagnosis: Other chronic pancreatitis Presentation: 12/11 07:10 Chief complaint: Epigastric pain that radiates to back and N/V that woke her from sleep hb last night. On Amoxicillin for bronchitis. Coronavirus screen: At this time, the client does not indicate any symptoms associated with coronavirus-19. Ebola Screen: No symptoms or risks identified at this time. Initial Sepsis Screen: Does the patient meet any 2 criteria? No. Patient's initial sepsis screen is negative. Does the patient have a suspected source of infection? No. Patient's initial sepsis screen is negative. Risk Assessment: Do you want to hurt yourself or someone else? Patient reports no desire to harm self or others. Onset of symptoms was December 11, 2023. 07:10 Method Of Arrival: Ambulatory hb 07:10 Acuity: RICK 3 hb Historical: - Allergies: 07:11 No Known Allergies; hb - Home Meds: 07:11 levothyroxine oral daily [Active]; Vitamin D Oral daily [Active]; Zyrtec Oral daily hb [Active]; EstroGel transdermal daily [Active]; Prilosec Oral daily [Active]; - PMHx: 07:11 Adrenal Adenoma- Left Kidney; Cholelithiasis; hb - PSHx: 07:11 Tubal Ligation; Cholecystectomy; hb - Immunization history:: Adult Immunizations up to date. - Social history:: Patient/guardian denies using alcohol, street drugs, IV drugs, Smoking status: Patient reports the use of cigarette tobacco products, smokes one-half pack cigarettes per day. - Family history:: not pertinent. - Hospitalizations: : No recent hospitalization is reported. Screenin:25 [facility] ED Fall Risk Assessment (Adult) History of falling in the last 3 months, aa5 including since admission No falls in past 3 months (0 pts) Confusion or Disorientation No (0 pts) Intoxicated or Sedated No (0 pts) Impaired Gait No (0 pts) Mobility Assist Device Used No (0 pt) Altered Elimination No (0 pt) Score/Fall Risk Level 0 - 2 = Low Risk Oriented to surroundings, Maintained a safe environment, Educated pt \T\ family on fall prevention, incl call for assistance when getting out of bed. Abuse screen: Denies threats or abuse. Nutritional screening: No deficits noted. Tuberculosis screening: No symptoms or risk factors identified. Assessment: 07:25 General: Appears uncomfortable, Behavior is calm, cooperative. Pain: Complains of pain aa5 in epigastric area Pain does not radiate. Pain currently is 6 out of 10 on a pain scale. Quality of pain is described as stabbing, Pain began 2 hours ago. Is continuous. Neuro: Level of Consciousness is awake, alert, obeys commands, Oriented to person, place, time, situation. Cardiovascular: Heart tones S1 S2 present Rhythm is regular. Respiratory: Airway is patent Respiratory effort is even, unlabored, Respiratory pattern is regular, symmetrical. GI: Abdomen is round non-distended, Bowel sounds present X 4 quads. Abd is soft and non tender X 4 quads. Reports diarrhea, nausea, Patient currently denies vomiting. : No signs and/or symptoms were reported regarding the genitourinary system. EENT: No signs and/or symptoms were reported regarding the EENT system. Derm: Skin is pink, warm \T\ dry. Musculoskeletal: Range of motion: intact in all extremities. 07:40 Reassessment: Patient is alert, oriented x 3, equal unlabored respirations, skin aa5 warm/dry/pink. Patient states feeling better. Patient states symptoms have improved. Reports nausea has improved. . Pain: Pain currently is 3 out of 10 on a pain scale. 08:45 Reassessment: Patient is alert, oriented x 3, equal unlabored respirations, skin aa5 warm/dry/pink. Pt reports pain has increased, rates pain 8/10 on a pain scale. . 09:00 Reassessment: Patient is alert, oriented x 3, equal unlabored respirations, skin aa5 warm/dry/pink. Patient states feeling better. 10:52 Reassessment: Pt aware of room assignment and wait time for transport to [facility]. Sitting aa5 up in bed, states no complaints at this time. . 10:57 Reassessment: Attempted to call report to admitting nurse, Room #413 has not been aa5 assigned to nurse yet, called warehouse insulation worker to notify. . 11:09 General: report called to INDIRA Hodges. ap3 Vital Signs: 07:10 BP 149 / 102; Pulse 67; Resp 16; Temp 98.1(O); Pulse Ox 96% on R/A; Weight 99.79 kg; hb Height 5 ft. 4 in. ; Pain 6/10; 07:45 BP 136 / 70; Pulse 61; Resp 18 S; Pulse Ox 99% on R/A; aa5 08:45 BP 126 / 77; Pulse 61; Resp 18 S; Pulse Ox 98% on R/A; aa5 11:15 BP 122 / 75; Pulse 57; Pulse Ox 98% on R/A; ap3 07:10 Body Mass Index 37.76 (99.79 kg, 162.56 cm) hb 07:10 Pain Scale: Adult hb ED Course: 06:38 Patient arrived in ED. ag3 06:56 Matt Mae MD is Attending Physician. telma 07:06 Clarissa Hobson, INDIRA is Primary Nurse. aa5 07:11 Triage completed. hb 07:14 Arm band placed on. hb 07:25 Patient has correct armband on for positive identification. Bed in low position. Call aa5 light in reach. Side rails up X 1. 07:28 Attending Physician role handed off by Matt Mae MD rt 07:28 Duy Weir MD is Attending Physician. rt 07:31 Inserted saline lock: 22 gauge in right antecubital area, using aseptic technique. ds4 Blood collected. 08:12 CT Abd/Pelvis - IV Contrast Only In Process Unspecified. EDMS 09:53 Gerald Walsh is Hospitalizing Provider. rt Administered Medications: 07:31 Drug: NS 0.9% IV 1000 ml IV at 1 bolus Per protocol; 1000 mL bolus Route: IV; Rate: 1 aa5 bolus; Site: right antecubital; 08:45 Follow up: IV Status: Completed infusion; IV Intake: 1000ml aa5 07:31 Drug: Famotidine IVP 20 mg IVP once; dilute with 10 mL 0.9% NaCl; give over 2 minutes aa5 Route: IVP; Site: right antecubital; 07:45 Follow up: Response: No adverse reaction aa5 07:31 Drug: Ondansetron IVP 4 mg IVP once; over 2 minutes Route: IVP; Site: right antecubital;aa5 07:45 Follow up: Response: No adverse reaction aa5 07:33 Drug: morphine IVP or IV 4 mg IVP once over 4 mins Route: IVP; Infused Over: 4 mins; aa5 Site: right antecubital; 07:45 Follow up: Response: No adverse reaction aa5 08:46 Drug: Ondansetron IVP 4 mg IVP once; over 2 minutes Route: IVP; Site: right antecubital;aa5 09:00 Follow up: Response: No adverse reaction aa5 08:48 Drug: HYDROmorphone IVP 0.5 mg IVP once Route: IVP; Site: right antecubital; aa5 09:00 Follow up: Response: No adverse reaction aa5 Medication: 07:48 VIS not applicable for this client. aa5 Intake: 08:45 IV: 1000ml; Total: 1000ml. aa5 Outcome: 09:53 Decision to Hospitalize by Provider. rt 11:28 Patient left the ED. ap3 Signatures: Dispatcher [employer] EDUT Matt Mae MD MD cha Calderon, Audri RN RN aa5 Padna Hill ds4 Davida Matt RN RN Jazzy Prieto RN RN ap3 Laurie Gutierrez ag3 Duy Weir MD MD rt Corrections: (The following items were deleted from the chart) 07:15 07:10 Chief complaint: Epigastric pain that radiates to back and N/V that woke her from hb sleep last night. hb 07:44 07:31 morphine IVP or IV 4 mg IVP in right antecubital over 4 mins aa5 aa5
--- NOTE | 2023-12-11 09:54 | EDPHYS ---
Physician Documentation [facility] Name: Estrella Cohen Age: 43 yrs Sex: Female : 1980 Arrival Date: 12/11/2023 Time: 06:33 Bed 5 Private MD: ED Physician Duy Weir HPI: 12/11 06:57 This 43 yrs old Female presents to ER via Unassigned with complaints of telma Abdominal Pain, Vomiting. 06:57 The patient presents to the emergency department with nausea, vomiting, that is telma intermittent, abdominal pain, of the epigastric area, right upper quadrant and left upper quadrant. Onset: The symptoms/episode began/occurred 1 day(s) ago. Possible causes: unknown. The symptoms are aggravated by nothing. The symptoms are alleviated by nothing. Associated signs and symptoms: The patient has no apparent associated signs or symptoms. Severity of symptoms: At their worst the symptoms were moderate in the emergency department the symptoms are unchanged. The patient has not experienced similar symptoms in the past. Historical: - Allergies: 07:11 No Known Allergies; hb - Home Meds: 07:11 levothyroxine oral daily [Active]; Vitamin D Oral daily [Active]; Zyrtec Oral daily hb [Active]; EstroGel transdermal daily [Active]; Prilosec Oral daily [Active]; - PMHx: 07:11 Adrenal Adenoma- Left Kidney; Cholelithiasis; hb - PSHx: 07:11 Tubal Ligation; Cholecystectomy; hb - Immunization history:: Adult Immunizations up to date. - Social history:: Patient/guardian denies using alcohol, street drugs, IV drugs, Smoking status: Patient reports the use of cigarette tobacco products, smokes one-half pack cigarettes per day. - Family history:: not pertinent. - Hospitalizations: : No recent hospitalization is reported. ROS: 06:58 Constitutional: Negative for fever, chills, and weight loss, Eyes: Negative for injury, telma pain, redness, and discharge, ENT: Negative for injury, pain, and discharge, Neck: Negative for injury, pain, and swelling, Cardiovascular: Negative for chest pain, palpitations, and edema, Respiratory: Negative for shortness of breath, cough, wheezing, and pleuritic chest pain, Back: Negative for injury and pain, : Negative for injury, bleeding, discharge, and swelling, MS/Extremity: Negative for injury and deformity, Skin: Negative for injury, rash, and discoloration, Neuro: Negative for headache, weakness, numbness, tingling, and seizure, Psych: Negative for depression, anxiety, suicide ideation, homicidal ideation, and hallucinations, Allergy/Immunology: Negative for hives, rash, and allergies, Endocrine: Negative for neck swelling, polydipsia, polyuria, polyphagia, and marked weight changes, Hematologic/Lymphatic: Negative for swollen nodes, abnormal bleeding, and unusual bruising, 06:58 Abdomen/GI: Positive for abdominal pain, nausea and vomiting, abdominal cramps, of the epigastric area, Exam: 06:58 Constitutional: This is a well developed, well nourished patient who is awake, alert, telma and in no acute distress. Head/Face: Normocephalic, atraumatic. Eyes: Pupils equal round and reactive to light, extra-ocular motions intact. Lids and lashes normal. Conjunctiva and sclera are non-icteric and not injected. Cornea within normal limits. Periorbital areas with no swelling, redness, or edema. ENT: Nares patent. No nasal discharge, no septal abnormalities noted. Tympanic membranes are normal and external auditory canals are clear. Oropharynx with no redness, swelling, or masses, exudates, or evidence of obstruction, uvula midline. Mucous membranes moist. Neck: Trachea midline, no thyromegaly or masses palpated, and no cervical lymphadenopathy. Supple, full range of motion without nuchal rigidity, or vertebral point tenderness. No Meningismus. Chest/axilla: Normal chest wall appearance and motion. Nontender with no deformity. No lesions are appreciated. Cardiovascular: Regular rate and rhythm with a normal S1 and S2. No gallops, murmurs, or rubs. Normal PMI, no JVD. No pulse deficits. Respiratory: Lungs have equal breath sounds bilaterally, clear to auscultation and percussion. No rales, rhonchi or wheezes noted. No increased work of breathing, no retractions or nasal flaring. Abdomen/GI: Soft, non-tender, with normal bowel sounds. No distension or tympany. No guarding or rebound. No evidence of tenderness throughout. Back: No spinal tenderness. No costovertebral tenderness. Full range of motion. Skin: Warm, dry with normal turgor. Normal color with no rashes, no lesions, and no evidence of cellulitis. MS/ Extremity: Pulses equal, no cyanosis. Neurovascular intact. Full, normal range of motion. Neuro: Awake and alert, GCS 15, oriented to person, place, time, and situation. Cranial nerves II-XII grossly intact. Motor strength 5/5 in all extremities. Sensory grossly intact. Cerebellar exam normal. Normal gait. Psych: Awake, alert, with orientation to person, place and time. Behavior, mood, and affect are within normal limits. 07:28 ECG was reviewed by the Attending Physician. rt Vital Signs: 07:10 BP 149 / 102; Pulse 67; Resp 16; Temp 98.1(O); Pulse Ox 96% on R/A; Weight 99.79 kg; hb Height 5 ft. 4 in. ; Pain 6/10; 07:45 BP 136 / 70; Pulse 61; Resp 18 S; Pulse Ox 99% on R/A; aa5 08:45 BP 126 / 77; Pulse 61; Resp 18 S; Pulse Ox 98% on R/A; aa5 11:15 BP 122 / 75; Pulse 57; Pulse Ox 98% on R/A; ap3 07:10 Body Mass Index 37.76 (99.79 kg, 162.56 cm) hb 07:10 Pain Scale: Adult hb MDM: 06:46 Patient medically screened. telma 07:00 Differential diagnosis: Nonspecific abd pain, gastritis, pancreatitis, appendicitis, telma viral gastroenteritis, gastroenteritis. Data reviewed: vital signs, nurses notes, lab test result(s), EKG, radiologic studies, CT scan, plain films. Consideration of Admission/Observation Escalation of care including admission/observation considered. I considered the following discharge prescriptions or medication management in the emergency department Medications were administered in the Emergency Department. See MAR. Test considered but Not performed: Ultrasound NO ABD USG. Counseling: I had a detailed discussion with the patient and/or guardian regarding the historical points, exam findings, and any diagnostic results supporting the discharge/admit diagnosis, lab results, radiology results. 09:53 Management of patient was discussed with the following: Hospitalist: Agrees to admit. rt Independent interpretation of the following test(s) in the Emergency Department CT Scan: My interpretation is No bowel obstruction syndrome interpretation of CT scan images. Response to treatment: the patient's symptoms have markedly improved after treatment. 12/11 06:46 Order name: CBC with Diff; Complete Time: 07:42 telma 12/11 06:46 Order name: CMP; Complete Time: 07:54 telma 12/11 06:46 Order name: Lipase; Complete Time: 07:54 telma 12/11 06:46 Order name: Test, Urine telma 12/11 06:46 Order name: Urinalysis w/ reflexes telma 12/11 06:56 Order name: Troponin HS; Complete Time: 07:54 telma 12/11 08:53 Order name: Test, Serum rt 12/11 10:35 Order name: Basic Metabolic Panel EDMS 12/11 10:35 Order name: Basic Metabolic Panel EDMS 12/11 10:35 Order name: Basic Metabolic Panel EDMS 12/11 10:35 Order name: Basic Metabolic Panel EDMS 12/11 10:35 Order name: Basic Metabolic Panel EDMS 12/11 10:35 Order name: Basic Metabolic Panel EDMS 12/11 10:35 Order name: CBC with Automated Diff EDMS 12/11 10:35 Order name: CBC with Automated Diff EDMS 12/11 10:35 Order name: CBC with Automated Diff EDMS 12/11 10:35 Order name: CBC with Automated Diff EDMS 12/11 10:35 Order name: CBC with Automated Diff EDMS 12/11 10:35 Order name: CBC with Automated Diff EDMS 12/11 10:35 Order name: Lipase EDMS 12/11 10:35 Order name: Lipase EDMS 12/11 10:35 Order name: Lipase EDMS 12/11 10:35 Order name: Magnesium EDMS 12/11 10:35 Order name: Magnesium EDMS 12/11 10:35 Order name: Magnesium EDMS 12/11 10:35 Order name: Magnesium EDMS 12/11 10:35 Order name: Magnesium EDMS 12/11 10:35 Order name: Magnesium EDMS 12/11 10:35 Order name: Phosphorus EDMS 12/11 10:35 Order name: Phosphorus EDMS 12/11 10:35 Order name: Phosphorus EDMS 12/11 10:35 Order name: Phosphorus EDMS 12/11 10:35 Order name: Phosphorus EDMS 12/11 10:35 Order name: Phosphorus EDMS 12/11 10:35 Order name: Troponin High Sensitivity EDMS 12/11 10:35 Order name: Troponin High Sensitivity [facility] 12/11 10:35 Order name: Troponin High Sensitivity [facility] 12/11 10:35 Order name: Urinalysis w/ reflexes [facility] 12/11 06:46 Order name: CT Abd/Pelvis - IV Contrast Only; Complete Time: 08:47 [facility] 12/11 06:56 Order name: EKG; Complete Time: 06:57 [facility] 12/11 06:47 Order name: IV Saline Lock; Complete Time: 07:31 [facility] 12/11 06:47 Order name: Labs collected and sent; Complete Time: 07:31 [facility] 12/11 06:56 Order name: EKG - Nurse/Tech; Complete Time: 07:31 [facility] EC:28 Rate is 63 beats/min. Rhythm is regular, Normal Sinus Rhythm with No ectopy. QRS [place] rt is Normal. MA interval is normal. QRS interval is normal. QT interval is normal. No Q waves. T waves are Normal. No ST changes noted. Interpreted by me. Administered Medications: 07:31 Drug: NS 0.9% IV 1000 ml IV at 1 bolus Per protocol; 1000 mL bolus Route: IV; Rate: 1 aa5 bolus; Site: right antecubital; 08:45 Follow up: IV Status: Completed infusion; IV Intake: 1000ml aa5 07:31 Drug: Famotidine IVP 20 mg IVP once; dilute with 10 mL 0.9% NaCl; give over 2 minutes aa5 Route: IVP; Site: right antecubital; 07:45 Follow up: Response: No adverse reaction aa5 07:31 Drug: Ondansetron IVP 4 mg IVP once; over 2 minutes Route: IVP; Site: right antecubital;aa5 07:45 Follow up: Response: No adverse reaction aa5 07:33 Drug: morphine IVP or IV 4 mg IVP once over 4 mins Route: IVP; Infused Over: 4 mins; aa5 Site: right antecubital; 07:45 Follow up: Response: No adverse reaction aa5 08:46 Drug: Ondansetron IVP 4 mg IVP once; over 2 minutes Route: IVP; Site: right antecubital;aa5 09:00 Follow up: Response: No adverse reaction aa5 08:48 Drug: HYDROmorphone IVP 0.5 mg IVP once Route: IVP; Site: right antecubital; aa5 09:00 Follow up: Response: No adverse reaction aa5 Disposition Summary: 12/11/23 09:53 Hospitalization Ordered Notes: Hospitalization Status: Observation rt Provider: Gerald Walsh rt Location: Telemetry/MedSurg (observation) rt Condition: Stable rt Problem: new rt Symptoms: have improved rt Bed/Room Type: Standard rt Room Assignment: 413(12/11/23 10:42) eb Diagnosis - Other chronic pancreatitis rt Forms: - Medication Reconciliation Form rt - SBAR form rt - Leadership Thank You Letter rt Signatures: Dispatcher [employer] Matt Porter MD MD cha Calderon, Audri, RN RN aa5 Davida Matt RN RN Toshia Hebert Ryan, MD MD rt Corrections: (The following items were deleted from the chart) 10:42 09:53 rt eb
[2023-12-11] MEDS ORDERED: SODIUM CHLORIDE 0.9% 10ML INJ IV PRN (10:31)
--- NOTE | 2023-12-11 10:41 | P.HP ---
Certification for Inpatient Patient admitted to: Observation With expected LOS: <2 Midnights Patient will require the following post-hospital care: None Practitioner: I am a practitioner with admitting privileges, knowledge of patient current condition, hospital course, and medical plan of care. Services: Services provided to patient in accordance with Admission requirements found in Title 42 Section 412.3 of the Code of Federal Regulations Patient History Date of Service: 12/11/23 Reason for admission: pancreatitis History of Present Illness: Estrella Cohen is a 43 year old female with pmhx Adrenal Adenoma- Left Kidney, Cholecystectomy, hypotension, and GERD who presents to the ED with c/o severe epigastric pain associated with nausea and vomitting for one week. She reports having an episode of epigastric pain earlier this week which resolved after two days. She woke up early this morning with this severe epigastric pain. She reports having bronchitis a few weeks ago and starting amoxicillin which has never bothered her in the past. She stopped the amoxicillin when she first experienced the epigastric pain associated with nausea and vomitting. Once that episode resolved she started taking the amoxicillin again and the severe epigastric pain has returned. Significant labs lipase 1647 and WBC mildly elevated at 11.7. She states she does not drink but does smoke 1/2 to 1 pack daily depending on her stress level. While in the ED, she was given 1 L NS, zofran, pepcid, morphine, and dilaudid. CT abd/pelvis with contrast reports "2 centimeter irregularly-shaped right ovarian cyst has recently ruptured. Small to moderate amount free fluid within the pelvis. Enlargement of a 3.9 centimeter low-density left renal cystic mass. Ultrasound recommended 4.3 centimeter left adrenal mass is unchanged in size since 2019. Given the lack of growth this probably represents an adenoma." Estrella will be admitted to hospitalist service for further evaluation and treatment of pancreatitis. Allergies No Known Allergies Allergy (Unverified 11/29/20 16:02) Home Medications: Omeprazole [Prilosec] 40 mg PO DAILY 11/29/20 Cetirizine HCl [Zyrtec] 1 tab PO DAILY 12/11/23 Cholecalciferol (Vitamin D3) [Vitamin D3] 5,000 unit PO DAILY 12/11/23 Levothyroxine [Synthroid*] 1 tab PO DAILY 12/11/23 - Past Medical/Surgical History -: hypotension -: GERD -: bronchitis -: Cholecystectomy -: Tubal ligation - Social History Smoking Status: Current every day smoker (1/2 to 1 pack daily) Smoking therapy provided: Yes Patient receptive to therapy: Yes Alcohol use: No CD- Drugs: No Caffeine use: Yes Place of Residence: Home Review of Systems General: Weakness Gastrointestinal: Nausea, Vomiting, Abdominal Pain (epigastric pain) Physical Examination - Physical Exam General: Alert, In no apparent distress, Oriented x3 HEENT: Atraumatic, Normocephalic, PERRLA Neck: Supple, 2+ carotid pulse no bruit, JVD not distended Respiratory: Clear to auscultation bilaterally, Normal air movement Cardiovascular: Normal pulses, Regular rate/rhythm, Normal S1 S2 Capillary refill: <2 Seconds Gastrointestinal: Normal bowel sounds, Soft and benign Musculoskeletal: No clubbing, No swelling, No contractures, No tenderness Integumentary: No rashes, No breakdown, No significant lesion Neurological: Normal speech, Normal strength at 5/5 x4 extr, Normal tone - Studies Laboratory Data (last 24 hrs) 12/11/23 12/11/23 07:16 07:16 WBC 11.60 H Hgb 13.7 Hct 40.6 Plt Count 423 H Sodium 140 Potassium 3.6 BUN 14 Creatinine 0.87 Glucose 108 H Total Bilirubin 0.2 AST 16 ALT 25 Alkaline Phosphatase 103 Lipase 1647 H Assessment and Plan - Plan Assessment and Plan Acute pancreatitis unspecified Lipase 1647, trend daily lipid panel pending NS 1 Liter given in the ED NS 100 ml/hr pain control hx GERD Hx HTN protonix monitor BP Q4h Currently stable BP Smoking abuse Educated cessation 4.3 cm Left Adrenal adenoma 3.9 cm left renal cystic mass 2 cm right ovarian cyst- ruptured Ouptatient follow up She is aware of both masses found on the CT DVT ppx SCD for now Full code LOS 2-3 days Discharge Plan: Home Plan to discharge in: 24 Hours - Advance Directives Does patient have a Living Will: No Does patient have a Durable POA for Healthcare: No Time Spent Managing Pts Care (In Minutes): 50
[2023-12-11 12:08] VITALS: BMI 43.0
[2023-12-11] MEDS: NA CHLORIDE 0.9% 1,000 ML IV SCH ×2 (12:12→20:39)
[2023-12-11] MEDS ORDERED: KCL 20 MEQ/100 mL IVPB 20 MEQ/100 ML BAG IV SCH (15:00)
[2023-12-11 15:44] LABS: Specific Gravity > 1.030 (1.005-1.030); Urine Bacteria None Seen /HPF (<20); Urine Bilirubin NEGATIVE (Negative); Urine Blood Trace (Negative); Urine Clarity Clear (Clear); Urine Color Light-Yellow (Yellow); Urine Glucose NEGATIVE (Negative); Urine Mucus 1+ /HPF (None Seen); Urine Protein TRACE (Negative); Urine Urobilinogen Normal (Normal); Urine pH 5.5 (5.0-7.0)
[2023-12-11] MEDS: HYDROMORPHONE HCL 1 MG/ML INJ IV PRN ×2 (15:58→20:39)
[2023-12-11] MEDS ORDERED: METOPROLOL TARTRATE 5 MG/5 ML INJ IV PRN (17:51)
[2023-12-11 21:28] VITALS: O2SAT 96
[2023-12-11] MEDS: ONDANSETRON 4 MG/2 ML VIAL IV PRN (21:28)
[2023-12-12] MEDS: NA CHLORIDE 0.9% 1,000 ML IV SCH ×2 (05:20→14:59)
[2023-12-12 06:53] LABS: Absolute Lymphocytes (CBC) 3.9 K/uL (0.7-4.9); Hematocrit 33.2 % (36.0-45.0); Lymphocytes % 42.2 % (15.3-44.8); MPV 8.8 fL (7.6-11.3); Platelets 345 thou/uL (152-406); RBC Red Blood Cell Count 3.81 M/uL (3.86-4.86)
[2023-12-12 07:01] LABS: Magnesium 2.2 mg/dL (1.6-2.4); Phosphorus 3.5 mg/dL (2.5-4.9); Potassium 3.9 mEq/L (3.5-5.1)
[2023-12-12] MEDS: HYDROMORPHONE HCL 1 MG/ML INJ IV PRN (09:35)
[2023-12-12] MEDS: ONDANSETRON 4 MG/2 ML VIAL IV PRN (09:37)
[2023-12-12] MEDS ORDERED: PANTOPRAZOLE 40 MG INJ IVP SCH (10:48)
[2023-12-12 14:47] VITALS: BP 145/67; TEMP 97.3
[2023-12-12] MEDS ORDERED: ACETAMINOPHEN 325 MG TABLET PO ONE (15:47)
--- NOTE | 2023-12-12 17:12 | P.DS ---
Admission Date: 12/11/23 Discharge Date: 12/12/23 Disposition: ROUTINE DISCHARGE Discharge Condition: GOOD Reason for Admission: pancreatitis Brief History of Present Illness: Diagnosis Acute pancreatitis unspecified GERD HTN 4.3 cm left adrenal adenoma 3.9 cm left renal cystic mass 2 cm right ovarian cyst, ruptured HPI 01/11/24 Estrella Cohen is a 43 year old female with pmhx Adrenal Adenoma- Left Kidney, Cholecystectomy, hypotension, and GERD who presents to the ED with c/o severe epigastric pain associated with nausea and vomitting for one week. She reports having an episode of epigastric pain earlier this week which resolved after two days. She woke up early this morning with this severe epigastric pain. She reports having bronchitis a few weeks ago and starting amoxicillin which has never bothered her in the past. She stopped the amoxicillin when she first experienced the epigastric pain associated with nausea and vomitting. Once that episode resolved she started taking the amoxicillin again and the severe epigastric pain has returned. Significant labs lipase 1647 and WBC mildly elevated at 11.7. She states she does not drink but does smoke 1/2 to 1 pack daily depending on her stress level. While in the ED, she was given 1 L NS, zofran, pepcid, morphine, and dilaudid. CT abd/pelvis with contrast reports "2 centimeter irregularly-shaped right ovarian cyst has recently ruptured. Small to moderate amount free fluid within the pelvis. Enlargement of a 3.9 centimeter low-density left renal cystic mass. Ultrasound recommended 4.3 centimeter left adrenal mass is unchanged in size since 2020. Given the lack of growth this probably represents an adenoma." Estrella will be admitted to hospitalist service for further evaluation and treatment of pancreatitis. Hospital Course: Estrella Cohen is a pleasant 43 year old female with a past medical history significant for Adrenal Adenoma- Left Kidney, Cholecystectomy, hypotension, and GERDwho was admitted to the [facility] on 12/11/23 for acute pancreatitis. Estrella Cohen presented to the ED complaining of nausea vomiting, abdominal pain. Lipase was significantly elevated over 1600. IV fluids and n.p.o. were well tolerated. This morning on examination, abdominal pain has improved, lipase improved greatly, tolerated clear liquid diet. Likely cause of inflammation is the amoxicillin taken for the bronchitis. She has tolerated regular diet without nausea, abdominal pain has resolved, she is ambulating independently, urinating well, and hemodynamically stable ready for discharge. Instructions are to continue to advance diet slowly and as tolerated. Continue to follow-up outpatient for the left adrenal adenoma, left renal cystic mass, and right ovarian cyst. On 12/12/2023, Estrella was seen on morning rounds and deemed medically stable for discharge. Estrella was discharged with instructions to schedule follow-up appointments with PCP. Estrella was provided prescriptions for Zofran. The patient and family members were given the opportunity to ask questions and reported no further questions. Furthermore, all questions were answered to the best of my ability. A copy of this discharge summary will be sent to the above providers to facilitate continuity of care. Today, I personally spent 50 minutes with Estrella, of which greater than 50% of the time was spent in patient education, counseling, and coordination of care as described above. Physical Exam General: NAD, AAOx3, conversant, obese HEENT: Atraumatic, Normocephalic, PERRLA Neck: Supple, 2+ carotid pulse no bruit, JVD not distended Respiratory: Clear to auscultation bilaterally, Normal air movement, symmetrical chest wall movement Cardiovascular: Normal pulses, RRR, Normal S1 S2 present Capillary refill: <2 Seconds Gastrointestinal: Normal bowel sounds, Soft and benign, NT/ND Musculoskeletal: No clubbing, No swelling, No contractures, No tenderness Integumentary: No rashes, No breakdown, No significant lesion Neurological: Normal speech, Normal strength at 5/5 x4 extr, Normal tone Vital Signs/Physical Exam: Temp Pulse Resp BP Pulse Ox 97.3 F 80 18 145/67 H 97 12/12/23 16:00 12/12/23 16:00 12/12/23 16:00 12/12/23 16:00 12/12/23 16:00 Laboratory Data at Discharge: WBC 9.30 thou/uL (4.3-10.9) 12/12/23 06:02 Hgb 11.2 g/dL (12.0-15.0) L D 12/12/23 06:02 Hct 33.2 % (36.0-45.0) L 12/12/23 06:02 Plt Count 345 thou/uL (152-406) 12/12/23 06:02 Sodium 140 mEq/L (136-145) 12/12/23 06:02 Potassium 3.9 mEq/L (3.5-5.1) 12/12/23 06:02 BUN 9 mg/dL (7-18) 12/12/23 06:02 Creatinine 0.63 mg/dL (0.55-1.02) 12/12/23 06:02 Glucose 90 mg/dL (74-106) 12/12/23 06:02 Phosphorus 3.5 mg/dL (2.5-4.9) 12/12/23 06:02 Magnesium 2.2 mg/dL (1.6-2.4) 12/12/23 06:02 Total Bilirubin 0.2 mg/dL (0.2-1.0) 12/11/23 07:16 AST 16 U/L (15-37) 12/11/23 07:16 ALT 25 U/L (13-56) 12/11/23 07:16 Alkaline Phosphatase 103 U/L (45-117) 12/11/23 07:16 Triglycerides 123 mg/dL (<150) 12/11/23 12:54 Cholesterol 203 mg/dL (<200) H 12/11/23 12:54 HDL Cholesterol 32 mg/dL (40-60) L 12/11/23 12:54 Cholesterol/HDL Ratio 6.34 12/11/23 12:54 Lipase 49 U/L (13-75) 12/12/23 06:02 Home Medications: Omeprazole [Prilosec] 40 mg PO DAILY 11/29/20 Cetirizine HCl [Zyrtec] 1 tab PO DAILY 12/11/23 Cholecalciferol (Vitamin D3) [Vitamin D3] 5,000 unit PO DAILY 12/11/23 Levothyroxine [Synthroid*] 1 tab PO DAILY 12/11/23 Ondansetron [Zofran] 4 mg PO Q8H PRN 5 Days #15 tab 12/12/23 New Medications: Ondansetron [Zofran] 4 mg PO Q8H PRN 5 Days #15 tab PRN Reason: Nausea / Vomiting Physician Discharge Instructions: Estrella Cohen was admitted 12/11/2023 with pancreatitis. IV fluids and n.p.o. were well tolerated. Abdominal pain has improved, lipase improved greatly, tolerated clear liquid diet tolerated. Likely cause of inflammation is the amoxicillin taken for the bronchitis. Continue to advance diet slowly and as tolerated. 1. Please call and schedule a follow-up appointment with your PCP in 3-5 days - Please follow-up with your PCP for medication refills/adjustments 2. Continue outpatient follow up for adrenal adenoma 3. Continue to advance diet as tolerated, full liquids today and bland diet on Wednesday, as tolerated 4. No activity restrictions 5. Return to ED if symptoms worsen New medications Zofran for nausea as needed Diet: [place] Activity: Ad taiwo Followup: Nela Park NP [Primary Care Provider] - (call for apointment in 3-5 days) Time spent managing pt's care (in minutes): 50
== END 2023-12-12 16:56 | disposition home or self-care (01) ==
LOC: ER 06:33 → ERHOLD 10:26 → 4TH 11:13
PROVIDERS: ADMIT Internal Medicine; ATTEND Internal Medicine
DX: K85.90 Acute pancreatitis without necrosis or infection, unspecified (principal); I95.9 Hypotension, unspecified; D35.02 Benign neoplasm of left adrenal gland; K21.9 Gastro-esophageal reflux disease without esophagitis; J40 Bronchitis, not specified as acute or chronic; R11.2 Nausea with vomiting, unspecified; R10.13 Epigastric pain; N83.201 Unspecified ovarian cyst, right side; N28.1 Cyst of kidney, acquired; F17.210 Nicotine dependence, cigarettes, uncomplicated; Z71.6 Tobacco abuse counseling; Z90.49 Acquired absence of other specified parts of digestive tract
CPT/HCPCS: 85025 ×2; 81001; 80048; 36415 ×2; 83735; 84703; 81025; 84100; 80061; 84484 ×3; 83690 ×2; 80053; 74177; Q9967; J3480; C9113; J1170 ×4; J2405 ×4; J7030 ×5; 93005; G0378